=== PATIENT | male | born 1995 | race African-American/Black ===

== ENCOUNTER 2018-03-05 19:26 | Emergency (ER) | payer SELFPAY, OTHER ==
[2018-03-05] MEDS ORDERED: LIDOCAINE WITH 8.4% SOD BICARB 3 ML DISP.SYRIN. INJ (19:45)
[2018-03-05] MEDS ORDERED: LIDOCAINE/EPI/TETRACAINE TOPICAL GEL 3 ML. TP (19:45)
== END 2018-03-05 19:50 | disposition left against medical advice (07) ==
LOC: ER 19:26
DX: S01.112A Laceration without foreign body of left eyelid and periocular area, initial encounter (principal); S00.83XA Contusion of other part of head, initial encounter; Y04.0XXA Assault by unarmed brawl or fight, initial encounter; Y93.89 Activity, other specified; Y92.89 Other specified places as the place of occurrence of the external cause; Y99.8 Other external cause status
CPT/HCPCS: 99281